=== PATIENT | female | born 1950 | race Caucasian/White ===

== ENCOUNTER 2018-07-10 06:20 | Day surgery (SDC) | payer OTHER ==
[~2018-07-10 06:20] MED LIST: ANORO ELLIPTA1 EACH IH; ASA81 MG PO; ATENOLOL50 MG PO; CARAFATE1 GM PO; EVISTA60 MG PO; GABAPENTIN300 MG PO; LIPITOR20 MG PO; LOSARTAN POTASS50 MG PO; MONTELUKAST SOD10 MG PO; OMEPRAZOLE20 M1 PO
== END 2018-07-10 11:50 | disposition home or self-care (01) ==
LOC: CIR.AMB 06:20
DX: M43.12 Spondylolisthesis, cervical region (principal)